=== PATIENT | female | born 1935 | race Caucasian/White ===

== ENCOUNTER 2016-10-24 09:24 | Emergency (ER) | payer BC, OTHER ==
[2016-10-24 09:29] VITALS: TEMP 98.3; BMI 32.4
--- NOTE | 2016-10-24 11:33 | PDOC ---
History of Present Illness - General Chief Complaint: Vaginal Bleeding Stated Complaint: VAG BLEEDING Time Seen by Provider: 10/24/16 10:58 History Source: Patient Exam Limitations: No Limitations - History of Present Illness Travel History: No Initial Comments: 10/24/16 12:53 81-year-old female with history of endometriosis/uterine fibroids presents with intermittent vaginal bleeding and this morning after urinating along with moving her bowel she had noted bright red blood in the toilet and decided come to the ER. Patient denies abdominal pain, fever, chills, dizziness but does state mild fatigue. Patient states has not seen a installation helper in numerous years but has an upcoming appointment with Dr. Montemayor. Patient denies dysuria, urinary frequency, blood-tinged stool, or recent constipation. Timing/Duration: reports: resolved prior to arrival Past History - Past Medical History Allergies/Adverse Reactions: Allergies Allergy/AdvReac Type Severity Reaction Status Date / Time aspirin Allergy Verified 10/24/16 09:30 cephalexin monohydrate Allergy Verified 10/24/16 09:30 [From Keflex] erythromycin base Allergy Verified 10/24/16 09:30 [Erythromycin Base] Home Medications: Ambulatory Orders Furosemide [Lasix -] 40 tab PO DAILY 09/10/14 Losartan Potassium [Cozaar] 25 tab PO DAILY 09/10/14 Ranitidine [Zantac -] 150 mg PO PRN PRN 09/11/14 Anemia: No Asthma: Yes (NO MEDICINE) Cancer: Yes (SKIN MELANOMA) Cardiac Disorders: No CVA: No COPD: No CHF: No Dementia: No Diabetes: No GI Disorders: Yes (ESOPHAGEAL REFLUX,HIATAL HERNIA,DIVERTICULOSIS,GERD) Disorders: No HTN: Yes Hypercholesterolemia: No Liver Disease: No Seizures: No Thyroid Disease: No - Surgical History Abdominal Surgery: No Appendectomy: No Cardiac Surgery: No Cholecystectomy: No Lung Surgery: No Neurologic Surgery: No Orthopedic Surgery: No - Psycho/Social/Smoking Cessation Hx Suicidal Ideation: No Smoking History: Never smoked Have you smoked in the past 12 months: No Hx Alcohol Use: No Drug/Substance Use Hx: No Substance Use Type: None Hx Substance Use Treatment: No Patient Lives Alone: No Lives with/in: con[facility] Review of Systems - Review of Systems Able to Perform ROS?: Yes Constitutional: No: Symptoms Reported HEENTM: No: Symptoms Reported Respiratory: No: Symptoms reported Cardiac (ROS): No: Symptoms Reported ABD/GI: No: Symptoms Reported : Yes: Discharge (vaginal bleeding) Musculoskeletal: No: Back Pain Integumentary: No: Symptoms Reported Neurological: Yes: Weakness (mild generalized). No: Headache, Dizziness Endocrine: No: Symptoms Reported Hematologic/Lymphatic: No: Anemia *Physical Exam - Vital Signs Last Vital Signs Temp Pulse Resp BP Pulse Ox 98.3 F 114 H 20 156/78 95 10/24/16 09:25 10/24/16 09:25 10/24/16 09:25 10/24/16 09:25 10/24/16 09:25 - Physical Exam General Appearance: Yes: Nourished, Appropriately Dressed. No: Apparent Distress HEENT: negative: Pale Conjunctivae Neck: positive: Supple Respiratory/Chest: positive: Lungs Clear, Normal Breath Sounds. negative: Respiratory Distress, Accessory Muscle Use Cardiovascular: positive: Regular Rhythm, Regular Rate (92 radially). negative : Murmur Gastrointestinal/Abdominal: positive: Soft Rectal Exam: positive: heme negative stool (brown stool) Musculoskeletal: negative: CVA Tenderness Extremity: positive: Normal Capillary Refill. negative: Pedal Edema Integumentary: positive: Normal Color, Warm, Moist Neurologic: positive: Normal Mood/Affect, Motor Strength 5/5 (ambulatory) ED Treatment Course - LABORATORY CBC & Chemistry Diagram: 10/24/16 11:41 10/24/16 11:41 - RADIOLOGY Radiology Studies Ordered: Category Date Time Status PELVIC / BLADDER US [US] Stat Ultrasound 10/24/16 11:28 Ordered Medical Decision Making - Medical Decision Making 10/24/16 12:34 Patient here for concern of bright red blood noted in the toilet after urinating and moving her bowels. Patient states has history of fibroids and has intermittent spotting over the past 2 decades. Patient has no complaints of abdominal pain but does state mild generalized fatigue over the past month patient on exam had no vaginal bleeding. Stool was brown but sent for guaiac testing. Labs are done including CBC, type and screen comp and urinalysis . Pelvic ultrasound also ordered. 10/24/16 13:35 Laboratory Tests 10/24/16 10/24/16 10/24/16 11:41 11:41 11:41 WBC 9.3 RBC 5.34 H Hgb 15.8 H Hct 46.7 H Plt Count 213 Neutrophils % 76.8 Sodium 139 Potassium 4.1 Chloride 102 Carbon Dioxide 28 Anion Gap 9 BUN 17 Creatinine 0.9 D Creat Clearance w eGFR > 60 Random Glucose 121 H D Calcium 9.0 Total Bilirubin 1.4 H D AST 31 ALT 31 Ur Leukocyte Esterase 1+ H Stool Occult Blood 10/24/16 11:41 WBC RBC Hgb Hct Plt Count Neutrophils % Sodium Potassium Chloride Carbon Dioxide Anion Gap BUN Creatinine Creat Clearance w eGFR Random Glucose Calcium Total Bilirubin AST ALT Ur Leukocyte Esterase Stool Occult Blood Negative 10/24/16 13:36 Ultrasound shows fibroid uterus with endometrial stripe significantly thickened at 1.8 cm. Patient be discharged home to follow-up with FIELD TE[employer] Dr. Montemayor. *DC/Admit/Observation/Transfer Diagnosis at time of Disposition: Uterine leiomyoma Qualifiers: Uterine leiomyoma location: intramural Qualified Code(s): D25.1 - Intramural leiomyoma of uterus - Discharge Dispostion Disposition: HOME Condition at time of disposition: Good - Referrals Referrals: Kenneth Kohler [Primary Care Provider] - Fahad Montemayor MD [Staff Physician] - - Patient Instructions Printed Discharge Instructions: DI for Uterine Fibroids Additional Instructions: Please follow up with Dr. Montemayor as discussed. Return to the ED if your symptoms worsen to the point that you have abdominal pain, heavy vaginal bleeding, or increased weakness.
[2016-10-24 12:03] LABS: URINE APPEARANCE CLEAR; URINE BILIRUBIN NEGATIVE (NEGATIVE); URINE BLOOD NEGATIVE (NEGATIVE); URINE COLOR YELLOW; URINE GLUCOSE (UA) NEGATIVE (NEGATIVE); URINE KETONE NEGATIVE (NEGATIVE); URINE NITRITE NEGATIVE (NEGATIVE); URINE UROBILINOGEN NEGATIVE E.U./dl (0.2-1.0)
[2016-10-24 12:10] LABS: BASOPHIL 0.7 % (0-2.0); MCH 29.5 pg (25.7-33.7); MCHC 33.8 g/dl (32.0-36.0); MEAN CELL VOLUME 87.3 fl (80-96); MEAN PLT VOLUME 8.2 fl (7.5-11.1); NEUTROPHILS 76.8 % (42.8-82.8); PLATELET COUNT 213 K/MM3 (134-434); RDW 13.5 % (11.6-15.6); WHITE BLOOD COUNT 9.3 K/mm3 (4.0-10.0)
[2016-10-24 12:19] LABS: URINE LEUK ESTERASE 1+ (NEGATIVE); URINE PROTEIN 1+ (NEGATIVE)
[2016-10-24 12:28] LABS: ALBUMIN 4.2 g/dl (3.4-5.0); ANION GAP 9 (8-16); BILIRUBIN,TOTAL 1.4 mg/dL (0.2-1.0); CO2 28 mmol/L (21-32); CREATININE 0.9 mg/dL (0.55-1.02); GLUCOSE,RANDOM 121 mg/dL (74-106); SGOT/AST 31 U/L (15-37); SGPT/ALT 31 U/L (12-78); TOT PROT 7.8 g/dl (6.4-8.2)
[2016-10-24 12:29] LABS: ALK PHOS 79 U/L (45-117)
[2016-10-24 12:34] LABS: URINE RBC 4 /hpf (0-3); URINE WBC 12 /hpf (3-5)
[2016-10-24 13:47] VITALS: BP 122/70; PULSE 74
== END 2016-10-24 13:55 | disposition home or self-care (01) ==
LOC: JER 09:24
DX: D25.1 Intramural leiomyoma of uterus (principal); K21.9 Gastro-esophageal reflux disease without esophagitis; Z85.820 Personal history of malignant melanoma of skin; J45.909 Unspecified asthma, uncomplicated
CPT/HCPCS: 36415; 76856-TC; 80053; 81003; 81015; 82272; 85025; 86850; 86900; 86901; 99285-25

== ENCOUNTER 2016-11-14 05:16 | Day surgery (SDC) | payer BC, OTHER ==
--- NOTE | 2016-11-13 10:21 | HP ---
[facility] - Chief Complaint Chief Complaint: Postmenopausal spotting. History of Present Illness: Pt has episode of spotting from the vagina and has a history of thickened endometrium and fibroid in utero. 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: Alzheimer's, CVA, Dementia, Migraine, Multiple Sclerosis, Peripheral Neuropathy, Parkinson's, Seizure, Syncope, TIA, Vertigo, Other Cardiovascular: No: AFIB, Aneurysm, Aortic Insufficiency, Aortic Stenosis, CAD, CHF, Deep Vein Thrombosis, HTN, Hyperlipdemia, [place], Mitral Insufficiency, Mitral Stenosis, Murmur, Pulmonary Hypertension, Other Pulmonary: No: Asthma, Bronchitis, Cancer, COPD, O2 Dependent, Pneumonia, Previously Intubated, Pulmonary Embolus, Pulmonary Fibrosis, Sleep Apnea, Other Gastrointestinal: Yes: Diverticulosis, GERD Hepatobiliary: No: Cirrhosis, Cholelithiasis, Cholecystitis, Choledocholithiasis , Hepatitis A, Hepatitis B, Hepatitis C, Other Renal/: No: Renal Failure, Renal Inusuff, BPH, Cancer, Hematuria, Hemodialysis , Neurogenic Bladder, Renal Calculi, UTI, Other Reproductive: No: Ectopic , Endometriosis, Fibroids, PID, Polycystic Ovary Syndrome, Postmenopausal, Other ...: No ...: 0 Heme/Onc: No: Anemia, B12 Deficiency, Bleeding Disorder, Cancer, Current Chemotherapy, Current Radiation Therapy, Hemochromatosis, Hypercoaguable State, Myeloproliferative Synd, Sickle Cell Disease, Sickle Cell Trait, Thrombocytopenia, Other Infectious Disease: No: AIDS, C-Diff, Herpes Zoster, HIV, MRSA, STD's, Tuberculosis, VREF, Other Musculoskeletal: No: Bursitis, Chronic low back pain, Hemiparesis, Hemiplegia, Osteoarthritis, Paraplegia, Other Rheumatology: No: Fibromyalgia, Gout, Lupus, Rheumatoid Arthritis, Sarcoidosis, Vasculitis, Other ENT: No: Allergic Rhinitis, Sinusitis, Other Endocrine: No: [place]'s Disease, Teri's Disease, Diabetes Insipidus, Diabetes Mellitus, Hyperparathyroidism, Hyperthyroidism, Hypothyroidism, Osteopenia, SIADH, Other Dermatology: No: Basal Cell, Cellulitis, Eczema, Melanoma, Psoriasis, Squamous Cell, Other - Current Medications Current Medications: Home Medications Medication Instructions Recorded Furosemide [Lasix -] 40 tab PO DAILY 09/10/14 Losartan Potassium [Cozaar] 25 tab PO DAILY 09/10/14 Ranitidine [Zantac -] 150 mg PO PRN PRN 09/11/14 Satellite Physical Exam - Physical Examination General Appearance: Well Nourished, Well Developed, Alert & Oriented x3 ENT: Clear, No Discharge, No masses Lung: Clear to auscultation Heart: Regular rate & rhythm, Normal S1, Normal S2 Breasts: Soft, Non-Tender, No masses bilaterally Abdomen: Soft, No tenderness, No CVA Extremities: No edema, No tenderness/swelling Pelvic Exam: Within normal limits External Genitalia, Within normal limits Vagina, Within normal limits Cervix, Within normal limits Uterus, Within normal limits [place] Neurological: Intact, Alert, Oriented Satellite Impression/Plan - Impression/Plan Impression: postmenopausal bleeding Operative Procedure: Hysteroscopy with D/C Date to be Performed: 11/14/16
[2016-11-13 14:40] VITALS: BMI 32.4
[2016-11-14] MEDS ORDERED: PROPOFOL 20 ML ONE ×2 (07:56)
[2016-11-14] MEDS ORDERED: SUCCINYLCHOLINE CHLORIDE 200 MG/10 ML VIAL ONE (08:00)
[2016-11-14] MEDS ORDERED: AMPICILLIN NA/SULBACTAM NA 1.5 GM VIAL IVPB ONE (08:04)
[2016-11-14] MEDS ORDERED: AMPICILLIN NA/SULBACTAM NA 1.5 GM VIAL ONE (08:14)
[2016-11-14] MEDS ORDERED: ACETAMINOPHEN 500 MG TABLET (FP) PO PRN (08:53)
[2016-11-14] MEDS ORDERED: ONDANSETRON 4 MG/2 ML VIAL IVPUSH PRN (08:53)
[2016-11-14] MEDS ORDERED: oxyCODONE HCL 5 MG TABLET PO PRN ×2 (08:53)
[2016-11-14] MEDS ORDERED: LACTATED RINGERS SOLUTION 1,000 ML IV SCH (09:00)
[2016-11-14 10:13] VITALS: TEMP 97.7
--- NOTE | 2016-11-14 10:14 | OP ---
DATE OF OPERATION: 11/14/2016 PREOPERATIVE DIAGNOSIS: Postmenopausal bleeding. POSTOPERATIVE DIAGNOSIS: Postmenopausal bleeding as well as thickened endometrium, endometrial polyp. PROCEDURE: Dilatation and curettage hysteroscopy. SURGEON: Karin Chatman MD ANESTHESIA: Given by the anesthesiologist, the type of anesthetic was MAC. ESTIMATED BLOOD LOSS: 5 mL. DESCRIPTION OF PROCEDURE: This patient was brought to the operating room, placed in the supine position, given anesthesia, placed in the lithotomy position, prepped and draped in the usual manner for dilatation and curettage hysteroscopy in the lithotomy position. The patient was examined. The uterus was noted to be normal-sized. Adnexa negative. The anterior lip of the cervix was grasped with a tenaculum. The uterus was sounded to 8 cm. The cervix was dilated with Desai dilators. Hysteroscopy was performed revealing an endometrial polyp. The endometrial polyp was removed using a polyp forceps as well as a curette. The patient tolerated the procedure well. Hemostasis was good. The estimated blood loss was approximately 5 mL. The endometrial tissue including the polyp was sent to Pathology for analysis. The patient did well and was transferred to the recovery room with stable vital signs and good hemostasis. KARIN CHATMAN M.D. [id number]
[2016-11-14 12:07] VITALS: BP 137/75; PULSE 83
--- NOTE | 2016-11-15 13:35 | PATH ---
Surgical Pathology Report Patient Name: ALFONSO COUGHLIN [facility]. Rec. #: [id number] /Age/Gender: 1935 (Age: 81) / F Account: [id number] Location: [facility] SURGICAL Taken: 11/14/2016 Received: 11/14/2016 Reported: 11/15/2016 Physicians: Nelson Chatman M.D. Specimen(s) Received A: ENDOMETRIAL POLYP B: ENDOMETRIAL CURETTINGS Clinical History Postmenopausal bleeding, endometrial thickening Endometrial polyp Final Diagnosis A. ENDOMETRIAL POLYP, POLYPECTOMY: COMPLEX ENDOMETRIAL HYPERPLASIA WITH CYTOLOGICAL ATYPIA ARISING IN FRAGMENTS OF ENDOMETRIAL POLYP. B. ENDOMETRIUM, CURETTAGE: SMALL FRAGMENTS OF COMPLEX ENDOMETRIAL HYPERPLASIA WITH CYTOLOGICAL ATYPIA. SMALL FRAGMENTS OF ENDOMETRIAL POLYP. FRAGMENTS OF BENIGN ENDOCERVICAL TISSUE AND BENIGN SQUAMOUS EPITHELIUM. Comment: The case was discussed with Dr. Nelson Chatman on 11/15/16. Electronically Signed Scott Barrera M.D. Gross Description A. Received in formalin labeled "endometrial polyp" are 3 pink-perez, polypoid portions of soft tissue ranging from 0.6 x 0.5 x 0.2 cm to 1.5 x 0.6 x 0.3 cm. The specimens are submitted in toto in one cassette. B. Received in formalin labeled "endometrial curettings" is a 2.8 x 2.7 x 0.4 cm aggregate of perez-red soft tissue fragments admixed with blood clot. The formalin is filtered and the specimen is entirely submitted in 2 cassettes. DL/11/14/2016 saudi/11/14/2016
== END 2016-11-14 11:15 | disposition home or self-care (01) ==
LOC: JASU-SURG 05:16
PROVIDERS: ATTEND Obstetrics & Gynecology
PROC: 0UDB8ZX Extraction of Endometrium, Via Natural or Artificial Opening Endoscopic, Diagnostic (ICD-10-PCS; principal; 2016-11-14 07:30)
DX: N95.0 Postmenopausal bleeding (principal); N84.0 Polyp of corpus uteri; R93.8 Abnormal findings on diagnostic imaging of other specified body structures
CPT/HCPCS: 88305-TC; 94760